=== PATIENT | male | born 1940 | race Caucasian/White ===

== ENCOUNTER → 2016-06-03 | Outpatient (CLI) | payer MEDICARE, OTHER ==
[~2016-06-03] MED LIST: ALDACTONE25 MG PO; ASPIR 8181 MG PO; COMBIVENT0.074 GM/I INH; COREG 25MG TAB25 MG PO; DIOVAN80 MG PO; ELIQUIS5 MG PO; LEVAQUIN500 MG PO; NASONEX17 GM; NITROSTAT0.4 MG SL; NORCO 10-325 T1 EACH PO; PRAVACHOL40 MG PO; PROAIR HFA8.5 GM INH; QVAR8.7 G1 INH; SYNTHROID25 MCG PO; ZETIA10 MG PO
== END ==
LOC: HEART 5 09:47
DX: I25.10 Atherosclerotic heart disease of native coronary artery without angina pectoris (principal); I50.22 Chronic systolic (congestive) heart failure; I25.5 Ischemic cardiomyopathy; I11.0 Hypertensive heart disease with heart failure
CPT/HCPCS: 93306

== ENCOUNTER → 2016-06-06 | Outpatient (CLI) | payer MEDICARE, OTHER ==
[2016-06-06 12:13] LABS: RED BLOOD COUNT 4.43 M/UL (4.20-5.50); WHITE BLOOD COUNT 11.2 K/UL (4.5-11.0)
[2016-06-06 12:30] LABS: BUN/CREATININE RATIO 30 (0-10)
== END ==
LOC: LAB 11:45
PROVIDERS: Internal Medicine Cardiovascular Disease
DX: I25.10 Atherosclerotic heart disease of native coronary artery without angina pectoris (principal); I48.92 Unspecified atrial flutter; I50.22 Chronic systolic (congestive) heart failure; R42 Dizziness and giddiness; R06.02 Shortness of breath; I25.5 Ischemic cardiomyopathy
CPT/HCPCS: 36415; 71020; 80048; 85025

== ENCOUNTER 2016-06-07 09:28 | Outpatient (CLI) | payer MEDICARE, OTHER ==
[~2016-06-07] VITALS: Ht 172.7 cm; Wt 78.0 kg
[2016-06-07] MEDS ORDERED: ELIQUIS5 MG PO (10:14)
[2016-06-07] MEDS ORDERED: ASPIR 8181 MG PO (10:20)
[2016-06-07] MEDS ORDERED: COREG 25MG TAB25 MG PO (10:20)
[2016-06-07] MEDS ORDERED: COMBIVENT0.074 GM/I INH (10:21)
[2016-06-07] MEDS ORDERED: DIOVAN80 MG PO (10:21)
[2016-06-07] MEDS ORDERED: NORCO 10-325 T1 EACH PO (10:22)
[2016-06-07] MEDS ORDERED: PRAVACHOL40 MG PO (10:23)
[2016-06-07] MEDS ORDERED: SYNTHROID25 MCG PO (10:23)
[2016-06-07] MEDS ORDERED: NASONEX17 GM (10:23)
[2016-06-07] MEDS ORDERED: QVAR8.7 G1 INH (10:24)
[2016-06-07] MEDS ORDERED: PROAIR HFA8.5 GM INH (10:24)
[2016-06-07] MEDS ORDERED: ZETIA10 MG PO (10:25)
[2016-06-07] MEDS ORDERED: ALDACTONE25 MG PO (10:25)
[2016-12-16] MEDS ORDERED: NITROSTAT0.4 MG SL (12:09)
[2016-12-16] MEDS ORDERED: LEVAQUIN500 MG PO (16:15)
== END 2016-06-08 11:50 | disposition home or self-care (01) ==
LOC: CATH 09:28 → MED SURG 4 17:15 → CATH 06-08 11:50
DX: I48.92 Unspecified atrial flutter (principal); I11.0 Hypertensive heart disease with heart failure; I50.22 Chronic systolic (congestive) heart failure; I25.5 Ischemic cardiomyopathy; I49.5 Sick sinus syndrome; Z95.5 Presence of coronary angioplasty implant and graft; E78.5 Hyperlipidemia, unspecified; I25.118 Atherosclerotic heart disease of native coronary artery with other forms of angina pectoris; R06.02 Shortness of breath; Z95.1 Presence of aortocoronary bypass graft; I25.2 Old myocardial infarction; Z79.02 Long term (current) use of antithrombotics/antiplatelets; Z95.810 Presence of automatic (implantable) cardiac defibrillator; Z79.82 Long term (current) use of aspirin; Z79.891 Long term (current) use of opiate analgesic; Z79.899 Other long term (current) drug therapy; E78.00 Pure hypercholesterolemia, unspecified; J30.9 Allergic rhinitis, unspecified; J42 Unspecified chronic bronchitis; I34.0 Nonrheumatic mitral (valve) insufficiency; Z98.84 Bariatric surgery status
CPT/HCPCS: 0; 93005; 93609; 93621; C1730; C1733; C1766; J1200; J1644; J2250; J2405; J3010; J7040

== ENCOUNTER 2021-10-05 19:48 | Emergency (ER) | payer MEDICARE, OTHER ==
[2021-10-05 20:24] LABS: HEMOGLOBIN 11.2 gm/dl (14.0-17.5); RED BLOOD COUNT 3.65 M/UL (4.20-5.50); WHITE BLOOD COUNT 7.6 K/UL (4.5-11.0)
[2021-10-05] MEDS ORDERED: BACITRACIN28.4 GM TP (23:15)
== END 2021-10-06 00:08 | disposition home or self-care (01) ==
LOC: ER1 19:48
PROVIDERS: Family Medicine
DX: S51.811A Laceration without foreign body of right forearm, initial encounter (principal); N18.9 Chronic kidney disease, unspecified; J43.9 Emphysema, unspecified; M54.50 Low back pain, unspecified; W11.XXXA Fall on and from ladder, initial encounter; Y92.009 Unspecified place in unspecified non-institutional (private) residence as the place of occurrence of the external cause
CPT/HCPCS: 70450; 71260; 72125; 72129; 72132; 80053; 82550; 82553; 83690; 84484; 85025; 85610; 93005; 96360; 99284; Q9967